=== PATIENT | male | born 1995 | race American Indian/Alaskan Native ===

== ENCOUNTER 2021-03-31 15:31 | Emergency (ER) | payer SELFPAY ==
[2021-03-31 15:59] VITALS: BP 118/60
--- NOTE | 2021-03-31 18:04 | Event Note ---
ED Screening Note Date of service: 03/31/21 Time: 18:01 ED Screening Note: 25-year-old -Malag[place] male reports to the emergency room stating that started last night having testicular pain of his right testicle that travels up his stomach into his back. Patient states he had vomited today. He reports his pain is 8 out of 10. Denies any penile discharge. Admits to unprotected intercourse with his . States he does have blood in his urine. This initial assessment/diagnostic orders/clinical plan/treatment(s) is/are subject to change based on patients health status, clinical progression and re- assessment by fellow clinical providers in the ED. Further treatment and workup at subsequent clinical providers discretion. Patient/guardian urged not to elope from the ED as their condition may be serious if not clinically assessed and managed. Initial orders include:
[2021-03-31 18:45] LABS: Basophils % (Auto) 0.5 % (0.0-1.8); Eosinophils # (Auto) 0.1 K/mm3 (0.0-0.4); Eosinophils % (Auto) 1.7 % (0.0-4.3); Hematocrit 42.4 % (35.5-45.6); Hemoglobin 14.1 gm/dl (11.8-15.2); Lymphocytes # (Auto) 0.9 K/mm3 (1.2-5.4); Lymphocytes % (Auto) 13.7 % (13.4-35.0); Mean Corpuscular HGB Conc 33 % (32-34); Mean Corpuscular Volume 91 fl (84-94); Monocytes # (Auto) 0.3 K/mm3 (0.0-0.8); Monocytes % (Auto) 5.2 % (0.0-7.3); Platelet Count 359 K/mm3 (140-440); Red Blood Count 4.67 M/mm3 (3.65-5.03); Red Cell Distribution Width 13.2 % (13.2-15.2)
[2021-03-31 19:00] LABS: Bilirubin,Urine NEG (Negative); Blood,Urine LG (Negative); Color,Urine Yellow (Yellow); Mucus,Urine 3+ /HPF
[2021-03-31 19:01] LABS: RBC,Urine > 182.0 /HPF (0.0-6.0)
[2021-03-31 19:07] LABS: Alanine Aminotransferase 9 units/L (7-56); Albumin 4.8 g/dL (3.9-5); BUN/Creatinine Ratio 12; Blood Urea Nitrogen 13 mg/dL (9-20); Calcium 9.3 mg/dL (8.4-10.2); Hemolysis Index 7
[2021-03-31] MEDS ORDERED: KETOROLAC 30 MG/1 ML INJ IV ONE (20:26)
--- NOTE | 2021-03-31 20:26 | Emergency Department Report ---
ED General Adult HPI - General Chief complaint: Abdominal Pain Stated complaint: RT SIDE PAIN Time Seen by Provider: 03/31/21 19:24 Source: patient Mode of arrival: Ambulatory Limitations: No Limitations - History of Present Illness Initial comments: 25-year-old -Scottish male patient presents with complaints of right- sided scrotal pain radiating up his right lower abdomen, his right side, into his right flank x yesterday. He also reports blood in his urine today, but denies any dysuria/urinary frequency, penile discharge, scrotal swelling, or penile lesions/pain. Patient states his pain has improved since being here in the ED. He does report a history of kidney stones and a hydrocele. No other past medical history per patient. He denies any fever/chills/sweats. He rates his current pain as a 6/10 in severity. -: Sudden Severity scale (0 -10): 10 Consistency: colicky Improves with: none Associated Symptoms: nausea/vomiting. denies: chest pain, cough, diaphoresis, fever/chills, headaches, loss of appetite, malaise, shortness of breath, syncope, weakness - Related Data Previous Rx's Medication Instructions Recorded Last Taken Type Ciprofloxacin HCl 500 mg PO BID 7 Days #14 tablet 03/31/21 Unknown Rx HYDROcodone/APAP 10-325 [[place] 1 each PO Q6HR PRN #12 tablet 03/31/21 Unknown Rx 10-325 mg TAB] Ondansetron [Zofran Odt] 4 mg PO Q8HR PRN #10 tab.rapdis 03/31/21 Unknown Rx Tamsulosin [Flomax] 0.4 mg PO QDAY #3 cap 03/31/21 Unknown Rx Allergies Allergy/AdvReac Type Severity Reaction Status Date / Time No Known Allergies Allergy Unverified 03/31/21 15:59 ED Review of Systems ROS: Stated complaint: RT SIDE PAIN Other details as noted in HPI Constitutional: denies: chills, diaphoresis, fever, malaise Respiratory: denies: cough, shortness of breath Cardiovascular: denies: chest pain Gastrointestinal: abdominal pain, nausea, vomiting. denies: diarrhea, co nstipation, hematemesis, melena Genitourinary: hematuria, testicular pain. denies: urgency, dysuria, frequency, discharge, testicular mass Skin: denies: rash Neurological: denies: headache Hematological/Lymphatic: denies: swollen glands ED Past Medical Hx - Past Medical History Previous Medical History?: No - Surgical History Past Surgical History?: No - Medications Home Medications: Home Medications Medication Instructions Recorded Confirmed Last Taken Type Ciprofloxacin HCl 500 mg PO BID 7 Days #14 tablet 03/31/21 Unknown Rx HYDROcodone/APAP 10-325 [[place] 1 each PO Q6HR PRN #12 tablet 03/31/21 Unknown Rx 10-325 mg TAB] Ondansetron [Zofran Odt] 4 mg PO Q8HR PRN #10 tab.rapdis 03/31/21 Unknown Rx Tamsulosin [Flomax] 0.4 mg PO QDAY #3 cap 03/31/21 Unknown Rx ED Physical Exam - General Limitations: No Limitations General appearance: alert, in no apparent distress - Head Head exam: Present: atraumatic, normocephalic - Eye Eye exam: Present: normal appearance. Absent: scleral icterus - ENT ENT exam: Present: normal exam - Neck Neck exam: Present: normal inspection - Respiratory Respiratory exam: Present: normal lung sounds bilaterally. Absent: respiratory distress - Cardiovascular Cardiovascular Exam: Present: regular rate, normal rhythm - GI/Abdominal GI/Abdominal exam: Present: soft, normal bowel sounds. Absent: distended, tenderness, guarding, rebound, rigid - exam: Present: normal inspection. Absent: testicular tenderness, scrotal swelling External exam: Present: normal external exam - Back Exam Back exam: Present: full ROM, CVA tenderness (R). Absent: CVA tenderness (L) - Neurological Exam Neurological exam: Present: alert, oriented X3, normal gait - Psychiatric Psychiatric exam: Present: normal affect, normal mood - Skin Skin exam: Present: warm, dry, intact, normal color. Absent: rash ED Course Vital Signs 03/31/21 03/31/21 15:54 22:15 Temperature 98.5 F Pulse Rate 76 55 L Respiratory 19 15 Rate Blood Pressure 118/60 [Right] O2 Sat by Pulse 98 100 Oximetry ED Medical Decision Making - Lab Data Result diagrams: 03/31/21 18:11 03/31/21 18:11 Lab Results 03/31/21 03/31/21 03/31/21 Range/Units 18:11 18:11 Unknown WBC 6.2 (4.5-11.0) K/mm3 RBC 4.67 (3.65-5.03) M/mm3 Hgb 14.1 (11.8-15.2) gm/dl Hct 42.4 (35.5-45.6) % MCV 91 (84-94) fl MCH 30 (28-32) pg MCHC 33 (32-34) % RDW 13.2 (13.2-15.2) % Plt Count 359 (140-440) K/mm3 Lymph % (Auto) 13.7 (13.4-35.0) % Johnson % (Auto) 5.2 (0.0-7.3) % Eos % (Auto) 1.7 (0.0-4.3) % Baso % (Auto) 0.5 (0.0-1.8) % Lymph # (Auto) 0.9 L (1.2-5.4) K/mm3 Johnson # (Auto) 0.3 (0.0-0.8) K/mm3 Eos # (Auto) 0.1 (0.0-0.4) K/mm3 Baso # (Auto) 0.0 (0.0-0.1) K/mm3 Seg Neutrophils % 78.9 H (40.0-70.0) % Seg Neutrophils # 4.9 (1.8-7.7) K/mm3 Sodium 137 (137-145) mmol/L Potassium 4.3 (3.6-5.0) mmol/L Chloride 101.9 (98-107) mmol/L Carbon Dioxide 26 (22-30) mmol/L Anion Gap 13 mmol/L BUN 13 (9-20) mg/dL Creatinine 1.1 (0.8-1.3) mg/dL Estimated GFR > 60 ml/min BUN/Creatinine Ratio 12 % Glucose 93 (75-100) mg/dL Calcium 9.3 (8.4-10.2) mg/dL Total Bilirubin 1.90 H (0.1-1.2) mg/dL AST 20 (5-40) units/L ALT 9 (7-56) units/L Alkaline Phosphatase 64 (35-129) units/L Total Protein 7.9 (6.3-8.2) g/dL Albumin 4.8 (3.9-5) g/dL Albumin/Globulin Ratio 1.5 % Urine Color Yellow (Yellow) Urine Turbidity Slightly-cloudy (Clear) Urine pH 5.0 (5.0-7.0) Ur Specific [place] 1.024 (1.003-1.030) Urine Protein 30 mg/dl (Negative) mg/dL Urine Glucose (UA) Neg (Negative) mg/dL Urine Ketones Neg (Negative) mg/dL Urine Blood Lg (Negative) Urine Nitrite Neg (Negative) Urine Bilirubin Neg (Negative) Urine Urobilinogen 4.0 (<2.0) mg/dL Ur Leukocyte Esterase Neg (Negative) Urine WBC (Auto) 25.0 H (0.0-6.0) /HPF Urine RBC (Auto) > 182.0 (0.0-6.0) /HPF U Epithel Cells (Auto) < 1.0 (0-13.0) /HPF Urine Mucus 3+ /HPF - Radiology Data Radiology results: report reviewed CT ABDOMEN AND PELVIS WITHOUT CONTRAST INDICATION / CLINICAL INFORMATION: Right flank pain hematuria. TECHNIQUE: Axial CT images were obtained through the abdomen and pelvis without IV contrast. All CT scans at this location are performed using CT dose reduction for Simple AdmitRA by means of automated exposure control. COMPARISON: None available. FINDINGS: LOWER CHEST: No significant abnormality. HEPATOBILIARY: No significant abnormality. PANCREAS/SPLEEN/ADRENALS: No significant abnormality. GENITOURINARY: Approximately 3 or 4, 2-3 mm nonobstructing right-sided nephroliths. Left kidney demonstrates no significant abnormality. Ureters demonstrate no significant abnormality. No obstructive uropathy. A 3 mm calcified focus is present at the dependent aspect of the bladder. GASTROINTESTINAL/MESENTERY: No significant abnormality. RETROPERITONEUM: No significant adenopathy. REPRODUCTIVE ORGANS: No significant abnormality. VASCULAR: No significant abnormality. BODY WALL: No significant abnormality. SKELETAL SYSTEM: No significant abnormality. IMPRESSION: 1. 3 mm calcified focus present at the dependent aspect of the bladder likely representing a recently passed stone. There are approximately 3 or 4, 2-3 mm nonobstructing right-sided nephrolith s. No obstructive uropathy. - Medical Decision Making 25-year-old -[place] male patient presents with complaints of right- sided scrotal pain radiating up his right lower abdomen, his right side, into his right flank x yesterday. He also reports blood in his urine today, but denies any dysuria/urinary frequency, penile discharge, scrotal swelling, or penile lesions/pain. Patient states his pain has improved since being here in the ED. He does report a history of kidney stones and a hydrocele. No other past medical history per patient. He denies any fever/chills/sweats. He rates his current pain as a 6/10 in severity. White count is normal CBC. No significant abnormalities noted on CMP. CT abdomen shows 3 mm calcified stone in the bladder-likely recently passed kidney stone. Patient given Toradol and states his pain is controlled. UA also shows 25 WBCs, urine culture sent along with gonorrhea and Chlamydia testing. We will treat for infected kidney stone with Rocephin and discharge patient home on Cipro and pain medicine. Patient states he has a urologist and will follow up with within a week. Discussed signs and symptoms that should prompt immediate return to the emergency department in detail with patient verbalizes underst anding. His vitals are normal, he he is nontoxic-appearing, and he is stable for discharge home. Critical care attestation.: If time is entered above; I have spent that time in minutes in the direct care of this critically ill patient, excluding procedure time. ED Disposition Clinical Impression: Kidney stone on right side, Abdominal pain, Pyelonephritis, Pyelonephritis of right kidney Disposition: DC-01 TO HOME OR SELFCARE Is pt being admited?: No Condition: Stable Instructions: Kidney Stones, Pyelonephritis, Adult, [id number], Dietary Guidelines to Help Prevent Kidney Stones Prescriptions: Ciprofloxacin HCl 500 mg PO BID 7 Days #14 tablet Tamsulosin [Flomax] 0.4 mg PO QDAY #3 cap HYDROcodone/APAP 10-325 [[place] 10-325 mg TAB] 1 each PO Q6HR PRN #12 tablet PRN Reason: Pain Ondansetron [Zofran Odt] 4 mg PO Q8HR PRN #10 tab.rapdis PRN Reason: Nausea Referrals: MARIAM LAMAR MD [Staff Physician] - 3-5 Days PRIMARY CARE, [Primary Care Provider] - 3-5 Days
--- NOTE | 2021-03-31 20:50 | Cat Scan Report ---
CT ABDOMEN AND PELVIS WITHOUT CONTRAST INDICATION / CLINICAL INFORMATION: Right flank pain hematuria. TECHNIQUE: Axial CT images were obtained through the abdomen and pelvis without IV contrast. All CT scans at [facility] location are performed using CT dose reduction for [place] by means of automated exposure control. COMPARISON: None available. FINDINGS: LOWER CHEST: No significant abnormality. HEPATOBILIARY: No significant abnormality. PANCREAS/SPLEEN/ADRENALS: No significant abnormality. GENITOURINARY: Approximately 3 or 4, 2-3 mm nonobstructing right-sided nephroliths. Left kidney demon strates no significant abnormality. Ureters demonstrate no significant abnormality. No obstructive ur opathy. A 3 mm calcified focus is present at the dependent aspect of the bladder. GASTROINTESTINAL/MESENTERY: No significant abnormality. RETROPERITONEUM: No significant adenopathy. REPRODUCTIVE ORGANS: No significant abnormality. VASCULAR: No significant abnormality. BODY WALL: No significant abnormality. SKELETAL SYSTEM: No significant abnormality. IMPRESSION: 1. 3 mm calcified focus present at the dependent aspect of the bladder likely representing a recently passed stone. There are approximately 3 or 4, 2-3 mm nonobstructing right-sided nephroliths. No obst ructive uropathy. Signer Name: Triston Landers MD Signed: 03/31/2021 8:46 PM Workstation Name: [email or web address][id number]
[2021-03-31] MEDS ORDERED: cefTRIAXone/NS 1 GM/50 ML 1 GM/50 ML BAG IV ONE (21:26)
== END 2021-03-31 22:15 | disposition home or self-care (01) ==
LOC: ED 15:31
DX: N20.0 Calculus of kidney (principal); N12 Tubulo-interstitial nephritis, not specified as acute or chronic; R10.31 Right lower quadrant pain; Z79.899 Other long term (current) drug therapy
CPT/HCPCS: 36415; 74176; 80053; 81001; 85025; 87086; 96365; 96375; 99284; J0696; J1885